=== PATIENT | female | born 1995 | race Two or more races ===

== ENCOUNTER 2023-10-24 14:14 | Outpatient (CLI) | payer OTHER | END 2023-10-24 14:16 | disposition home or self-care (01) | LOC: PRENATAL 14:14 | PROVIDERS: ATTEND Obstetrics & Gynecology Maternal & Fetal Medicine | DX: O36.80X0 Pregnancy with inconclusive fetal viability, not applicable or unspecified (principal); Z36.9 Encounter for antenatal screening, unspecified; Z36.82 Encounter for antenatal screening for nuchal translucency; Z3A.12 12 weeks gestation of pregnancy ==

== ENCOUNTER 2024-03-15 09:00 | Outpatient (CLI) | payer OTHER | END 2024-03-15 09:03 | disposition home or self-care (01) | LOC: PRENATAL 09:00 | PROVIDERS: ATTEND Obstetrics & Gynecology Maternal & Fetal Medicine | DX: O26.843 Uterine size-date discrepancy, third trimester (principal); O36.8130 Decreased fetal movements, third trimester, not applicable or unspecified; Z3A.32 32 weeks gestation of pregnancy ==

== ENCOUNTER → 2024-04-18 10:11 | Outpatient (CLI) | payer OTHER | END | disposition home or self-care (01) | LOC: PRENATAL 10:11 | PROVIDERS: ATTEND Obstetrics & Gynecology Maternal & Fetal Medicine | DX: Z76.1 Encounter for health supervision and care of foundling (principal) ==

== ENCOUNTER 2024-05-01 14:00 | Inpatient (IN) | payer OTHER ==
[~2024-05-01] VITALS: Ht 157.5 cm; Wt 67.1 kg
[2024-05-01 17:36] LABS: URINE APPEARANCE Clear; URINE BILIRRUBIN Negative (NEGATIVE); URINE BLOOD Negative; URINE COLOR Yellow; URINE GLUCOSE Negative (NEGATIVE); URINE KETONE Negative (NEGATIVE); URINE LEUKOCYTE Negative; URINE NITRATE Negative; URINE PROTEIN Negative (NEGATIVE); URINE UROBILINOGEN 0.2 E.U./dl
[2024-05-01 17:38] LABS: URINE BACTERIA 583.3 uL (0.0-1933); URINE EPITHELIAL CELLS 9.2 uL (0.0-38.8)
[2024-05-01 17:39] LABS: HEMATOCRIT 33.3 % (36.0-45.00); HEMOGLOBIN 11.3 g/dL (12.0-15.00); MEAN CELL VOLUME 95.9 fL (80.00-100.00); MEAN CORPUSCULAR HEMOGLOBIN 32.4 pg (27.00-32.0); MEAN CORPUSCULAR HGB CONC 33.8 g/dl (32.0-36.0); PLATELET COUNT 207 K/uL (150-450); RED BLOOD COUNT 3.47 M/uL (4.00-6.00); RED CELL DISTRIBUTION WIDTH 14.2 % (11.5-14.5)
[2024-05-01 17:41] LABS: URINE RBC 1.3 uL (0.0-20.8)
[2024-05-01 17:56] LABS: INR 0.97; PARTIAL THROMBOPLASTIN TIME 25.8 SECONDS (22.0-34.0); PROTHROMBIN TIME 10.6 SECONDS (9.0-11.5)
[2024-05-01 18:00] LABS: ALBUMIN 2.7 gm/dL (3.4-5.0); BILIRUBIN TOTAL 0.35 mg/dL (0.3-1.2); CALCIUM 8.6 mg/dL (8.5-10.1); CREATININE SERUM 0.4 mg/dL (0.55-1.02); GFR 187.41; GLOBULINA 3.8 G/DL (2.4-3.5); POTASSIUM 3.7 mEq/L (3.5-5.1); TOTAL PROTEIN 6.5 gm/dL (6.4-8.2)
[2024-05-06] MEDS ORDERED: PRENATAL TABLE1 EAC1 PO (14:19)
[2024-05-06 15:26] VITALS: BP 123/72
[2024-05-06] MEDS ORDERED: AMPICILLIN SODIUM 2,000 MG VIAL IV ONE (15:45)
[2024-05-06] MEDS ORDERED: MORPHINE SULFATE 4 MG/ML CARTRIDGE IV ONE (17:00)
[2024-05-06 17:10] VITALS: BP 114/67
[2024-05-06] MEDS ORDERED: AMPICILLIN SODIUM 1,000 MG VIAL IV SCH (20:00)
[2024-05-06] MEDS ORDERED: OXYTOCIN 1,000 ML IV SCH (21:00)
[2024-05-06] MEDS ORDERED: ACETAMINOPHEN 500 MG GEL..CAP PO PRN (21:00)
[2024-05-06 21:10] VITALS: BP 119/66
[2024-05-06 22:21] VITALS: BP 105/60
[2024-05-06 22:41] VITALS: BP 125/54
[2024-05-06 22:51] VITALS: BP 110/57
[2024-05-06] MEDS ORDERED: ERYTHROMYCIN BASE OPHT 1GM EACH TUBE OP ONE (23:15)
[2024-05-06] MEDS ORDERED: LIDOCAINE HCL 1% 10ML VIAL PERCUT ONE (23:15)
[2024-05-06] MEDS ORDERED: CHLORHEXIDINE GLUCONATE 120 ML BOTTLE TOP ONE (23:15)
[2024-05-07] VITALS: BP 116/69
[2024-05-07 00:49] VITALS: BP 108/65
[2024-05-07 01:54] LABS: HEMATOCRIT 32.9 % (36.0-45.00); HEMOGLOBIN 11.2 g/dL (12.0-15.00); MEAN CELL VOLUME 95.5 fL (80.00-100.00); MEAN CORPUSCULAR HEMOGLOBIN 32.4 pg (27.00-32.0); PLATELET COUNT 186 K/uL (150-450); RED BLOOD COUNT 3.44 M/uL (4.00-6.00); RED CELL DISTRIBUTION WIDTH 14.7 % (11.5-14.5)
[2024-05-07 07:44] VITALS: BP 101/68
[2024-05-07] MEDS ORDERED: PNV,CALCIUM 72/IRON/FOLIC ACID 1 TAB TABLET PO SCH (09:00)
[2024-05-07 18:22] VITALS: BP 111/72
[2024-05-08 00:47] VITALS: BP 104/56
[2024-05-08 08:51] VITALS: BP 114/72
[2024-05-08 16:10] VITALS: BP 106/60
== END 2024-05-08 16:52 | disposition home or self-care (01) | DRG 807 ==
LOC: LDR 05-06 15:22 → OB/GYN 05-06 21:54
PROVIDERS: ADMIT Student in an Organized Health Care Education/Training Program; ATTEND Student in an Organized Health Care Education/Training Program
PROC: 10E0XZZ Delivery of Products of Conception, External Approach (ICD-10-PCS; principal; 2024-05-06)
PROC: 0HQ9XZZ Repair Perineum Skin, External Approach (ICD-10-PCS; 2024-05-06)
PROC: 0UQG7ZZ Repair Vagina, Via Natural or Artificial Opening (ICD-10-PCS; 2024-05-06)
PROC: 4A1HXCZ Monitoring of Products of Conception, Cardiac Rate, External Approach (ICD-10-PCS; 2024-05-06)
DX: O70.0 First degree perineal laceration during delivery (principal); O99.824 Streptococcus B carrier state complicating childbirth; Z37.0 Single live birth; Z3A.39 39 weeks gestation of pregnancy; Z20.822 Contact with and (suspected) exposure to COVID-19

== ENCOUNTER 2024-05-06 14:13 | Outpatient (CLI) | payer OTHER ==
[~2024-05-06] VITALS: Ht 157.5 cm; Wt 67.1 kg
[2024-05-06 14:12] VITALS: BP 123/75
[2024-05-06] MEDS ORDERED: PRENATAL TABLE1 EAC1 PO (14:19)
[2024-05-06] MEDS ORDERED: RINGERS SOLUTION,LACTATED 1,000 ML IV SCH ×2 (14:30→15:45)
== END 2024-05-06 15:21 | disposition still patient (30) ==
LOC: OBS/DEL 14:13
PROVIDERS: ATTEND Student in an Organized Health Care Education/Training Program
DX: O26.893 Other specified pregnancy related conditions, third trimester (principal)